=== PATIENT | male | born 1975 | race Caucasian/White ===

== ENCOUNTER 2017-05-31 04:44 | Emergency (ER) | payer OTHER ==
[~2017-05-31] VITALS: Ht 182.9 cm; Wt 114.0 kg
[2017-05-31 04:47] VITALS: TEMP 36.8; Ht 182.9 cm; Wt 114.0 kg
--- NOTE | 2017-05-31 05:02 | EMERGENCY ROOM VISIT NOTE ---
History First contact with patient: 04:51 Chief Complaint: ANKLE PAIN Stated Complaint: ANKLE PAIN History of Present Illness The patient is a 42 year old male who presents to the Emergency Room with complaints of right foot/ankle pain. The patient states that he kicked a piece of furniture last night and has had pain in his right ankle/foot since then. He rates his discomfort a 7/10. He took Aleve without relief. He reports that the pain woke him from sleep tonight. He is having difficulty bearing weight on the foot. He denies any previous injuries to this ankle/foot. He denies any numbness or weakness. Review of Systems A 6 point review of systems was reviewed with the patient with pertinent positives and negatives as per history of present illness. All else were negative. Social History Smoking Status: Former Smoker Alcohol Use: occasionally Housing Status: lives with family Occupation Status: employed Current/Historical Medications Miscellaneous Medications None (Patient States No Home Meds) Physical Exam Vital Signs Date Time Temp Pulse Resp B/P (MAP) Pulse Ox O2 Delivery O2 Flow Rate FiO2 05/31/17 04:47 36.8 93 18 143/89 95 Room Air Physical Exam VITALS: Vitals are noted on the nurse's note and reviewed by myself. Vital signs stable. GENERAL: This is a 42-year-old male, in no acute distress, nondiaphoretic, well- developed well-nourished. MUSCULOSKELETAL: There is mild edema and tenderness to the proximal dorsal right foot in the area of the proximal third and fourth metatarsals. No tenderness to the rest of the foot. No tenderness of the ankle. Patient is able to wiggle toes without difficulty. Full plantar flexion, decreased dorsiflexion. NEURO: Patient was alert and oriented to person place and time. Normal sensation. Medical Decision & Procedures ER Provider Diagnostic Interpretation: RIGHT FOOT: No obvious fractures or dislocations. Medical Decision Differential diagnosis includes fracture, sprain, contusion, among others. The patient was evaluated as above. He presents for an injury of the right foot. X-ray was obtained and reviewed by myself and does not show any obvious fractures. Patient was placed in a postoperative shoe. Conservative measures were discussed. He verbalized understanding of my assessment and treatment plan and was discharged home in good condition. Medication Reconcilliation Current Medication List: was personally reviewed by me Blood Pressure Screening Patient's blood pressure: Elevated blood pressure Blood pressure disposition: Elevated BP felt to be situational Impression Primary Impression: Contusion of right foot Departure Information Dispostion Home / Self-Care Condition GOOD Referrals No Doctor, Assigned (PCP) Patient Instructions My [facility] Additional Instructions You have been treated in the Emergency Department for a foot injury. For pain control, you can use the following [id number] medicines (if >12 yo): - Regular strength (325mg/tab) Tylenol (acetaminophen) 2 tabs every 4-6 hours as needed. Do not exceed 12 tablets in a 24 hour period. Avoid taking more than 4 grams (4000 mg) of Tylenol per day. This includes any other sources of acetaminophen you may take on a regular basis. - Regular strength (200 mg/tab) Advil (ibuprofen) 1-2 tabs every 4-6 hours as needed. Do not exceed a dose of 3200 mg per day. If this is a recent injury (<24 hrs), ice can be applied to the area of pain for the first 3 days to help decrease pain and inflammation. Elevate the foot to help reduce swelling. Keep the postop shoe in place for the next several days as needed for pain/ difficulty walking. If pain persists, follow up with your primary care provider or orthopedics. Return to the Emergency Department if your current symptoms worsen despite treatment course outlined above, or if you develop any of the following symptoms : intractable pain despite aforementioned treatment course or new onset of numbness or tingling of the foot. Problem Qualifiers Primary Impression: Contusion of right foot Encounter type: initial encounter Qualified Codes: S90.31XA - Contusion of right foot, initial encounter
[2017-05-31 05:45] VITALS: BP 140/82; PULSE 90; O2SAT 98
--- NOTE | 2017-05-31 06:57 | DIAGNOSTIC IMAGING REPORT ---
R FOOT MIN 3 VIEWS ROUTINE CLINICAL HISTORY: 42 years-old Male presenting with right foot pain, kicked furniture. TECHNIQUE: Frontal, oblique, and lateral views of the right foot were obtained. COMPARISON: None. FINDINGS: Acute fracture or malalignment. No degenerative change. Os peroneum noted. No radiographic soft tissue abnormality. IMPRESSION: No acute osseous injury of the right foot. Electronically signed by: John Butcher M.D. 05/31/2017 6:55 AM Dictated Date/Time: 05/31/2017 6:54 AM
== END 2017-05-31 06:04 | disposition home or self-care (01) ==
LOC: C.EDB 04:46
DX: S90.31XA Contusion of right foot, initial encounter (principal); W22.8XXA Striking against or struck by other objects, initial encounter; Z87.891 Personal history of nicotine dependence

== ENCOUNTER → 2017-08-27 | Outpatient (CLI) | payer OTHER ==
--- NOTE | 2017-08-27 11:15 | DIAGNOSTIC IMAGING REPORT ---
SKULL 5 VIEWS CLINICAL HISTORY: Forehead injury. FINDINGS: 5 views of the calvarium are obtained. No prior studies are available for comparison at the time of dictation. The skeletal structures are well mineralized. There is no radiographic evidence of calvarial fracture. The paranasal sinuses are clear as imaged. The mastoid air cells appear well-pneumatized. The bony orbits are intact as visualized. IMPRESSION: Unremarkable radiographic assessment of the calvarium. Electronically signed by: Jaswinder Blanco M.D. 08/27/2017 11:14 AM Dictated Date/Time: 08/27/2017 11:13 AM
== END | disposition home or self-care (01) ==
LOC: C.RAD1850 10:55
PROVIDERS: ATTEND Nurse Practitioner Adult Health
DX: S09.90XA Unspecified injury of head, initial encounter (principal); X58.XXXA Exposure to other specified factors, initial encounter

== ENCOUNTER → 2017-08-27 | Outpatient (CLI) | payer OTHER ==
--- NOTE | 2017-08-27 12:17 | DIAGNOSTIC IMAGING REPORT ---
CT SCAN OF THE BRAIN WITHOUT IV CONTRAST CLINICAL HISTORY: Head injury. COMPARISON STUDY: Calvarial radiographs performed the same day 08/27/2017. TECHNIQUE: Unenhanced axial CT scan of the brain is performed from the vertex to the skull base. A dose lowering technique was utilized adhering to the principles of ALARA. CT DOSE: 687.98 mGy.cm FINDINGS: Brain parenchyma: The brain parenchyma is normal in appearance. There is no hemorrhage, mass effect, or evidence of acute territorial ischemia by CT criteria. Brooks-white matter is preserved. No extra-axial fluid collection is seen. Ventricles, sulci, cisterns: Normal in configuration. Intracranial vasculature: The visualized intracranial vasculature at the skull base is normal in appearance. Calvarium: There is no depressed calvarial fracture. Sinuses and mastoids: Large retention cysts are seen in the left maxillary antrum. The remaining visualized paranasal sinuses are clear. The mastoid air cells are well pneumatized. Orbits: The bony orbits are grossly intact. IMPRESSION: 1. No acute intracranial abnormality. 2. There is no depressed calvarial fracture. Electronically signed by: Jaswinder Blanco M.D. 08/27/2017 12:16 PM Dictated Date/Time: 08/27/2017 12:12 PM
== END | disposition home or self-care (01) ==
LOC: C.CTS 11:58
PROVIDERS: ATTEND Emergency Medicine
DX: S09.90XA Unspecified injury of head, initial encounter (principal); X58.XXXA Exposure to other specified factors, initial encounter; J34.1 Cyst and mucocele of nose and nasal sinus